=== PATIENT | female | born 1975 | race Caucasian/White ===

== ENCOUNTER 2018-04-21 21:53 | Observation (INO) | payer BC ==
[2018-04-21] MEDS ORDERED: ACETAMINOPHEN TAB 650MG DOSE (2X325MG) PO (23:00)
[2018-04-22 06:00] LABS: HEMATOCRIT 25.7 % (36.0-47.0); HEMOGLOBIN 8.2 g/dl (12.0-15.5); MEAN CORPUSCULAR HEMOGLOBIN 25.5 pg (27.0-33.0); MEAN CORPUSCULAR HGB CONC 31.9 g/dl (32.0-36.5); MEAN CORPUSCULAR VOLUME 80.1 fl (80.0-96.0); PLATELET COUNT, AUTOMATED 196 10^3/uL (150-450); RED BLOOD COUNT 3.21 10^6/uL (4.00-5.40); RED CELL DISTRIBUTION WIDTH 14.9 % (11.5-14.5); WHITE BLOOD COUNT 4.6 10^3/uL (4.0-10.0)
[2018-04-22] MEDS ORDERED: SLF 3 ML SYR IV (08:15)
[2018-04-22 12:39] LABS: HEMATOCRIT 28.9 % (36.0-47.0); HEMOGLOBIN 9.2 g/dl (12.0-15.5)
[2018-04-22] MEDS: SLF 3 ML SYR IV (14:00)
[2018-04-22 14:23] LABS: CONTROL LINE UCG INT CTR LINE PRESENT; URINE PREG TEST NEGATIVE (NEGATIVE)
[2018-04-22] MEDS: SERTRALINE HCL 50 MG TAB PO (16:35)
[2018-04-22] MEDS: MULTIVITAMINS/MINERALS THERAP 1 TAB PO (16:35)
[2018-04-22 18:11] LABS: HEMATOCRIT 29.4 % (36.0-47.0); HEMOGLOBIN 9.2 g/dl (12.0-15.5)
== END 2018-04-22 19:31 | disposition home or self-care (01) ==
LOC: M PCU 21:53
DX: D62 Acute posthemorrhagic anemia (principal); N92.0 Excessive and frequent menstruation with regular cycle; N85.2 Hypertrophy of uterus; D25.9 Leiomyoma of uterus, unspecified; N85.8 Other specified noninflammatory disorders of uterus; F41.9 Anxiety disorder, unspecified; Z79.899 Other long term (current) drug therapy; Z88.0 Allergy status to penicillin; Z91.040 Latex allergy status
CPT/HCPCS: 76856